=== PATIENT | male | born 1970 ===

== ENCOUNTER 2017-12-13 20:41 | Emergency (ER) | payer OTHER ==
[2017-12-13 21:01] VITALS: BP 144/75; PULSE 76; RESP 18; TEMP 98.3; O2SAT 99
[2017-12-13] MEDS ORDERED: Amoxicillin-Clav 875-125 mg Tab PO STA (21:37)
--- NOTE | 2017-12-13 21:44 | ED PDOC ---
HPI: General Adult Time Seen by Provider: 12/13/17 21:20 Chief Complaint (Nursing): Abnormal Skin Integrity Chief Complaint (Provider): abscess History Per: Patient Additional Complaint(s): 47-year-old male presents for evaluation of abscess to right leg for 2 days. Patient denies active drainage or fever. He has mild localized pain. Past Medical History Reviewed: Historical Data, Nursing Documentation, Vital Signs Vital Signs: Last Vital Signs Temp 98.3 F 12/13/17 20:59 Pulse 76 12/13/17 20:59 Resp 18 12/13/17 20:59 BP 144/75 12/13/17 20:59 Pulse Ox 99 12/13/17 20:59 - Medical History PMH: Diabetes - Surgical History Surgical History: Appendectomy - Family History Family History: States: No Known Family Hx - Living Arrangements Living Arrangements: With Family - Social History Current smoker - smoking cessation education provided: No Alcohol: None Drugs: Denies - Home Medications Home Medications: Ambulatory Orders Medication Instructions Recorded Amoxicillin/Clavulanate [Augmentin 1 tab PO BID #14 tab 12/13/17 875 MG-125 MG] Clindamycin [Cleocin] 300 mg PO QID #28 cap 12/13/17 Ibuprofen [Motrin] 600 mg PO Q6 PRN #15 tab 12/13/17 - Allergies Allergies/Adverse Reactions: Allergies Allergy/AdvReac Type Severity Reaction Status Date / Time No Known Allergies Allergy Verified 12/13/17 20:59 Review of Systems ROS Statement: Except As Marked, All Systems Reviewed And Found Negative Constitutional: Negative for: Fever Skin: Positive for: Other (abscess to right leg) Physical Exam - Reviewed Nursing Documentation Reviewed: Yes Vital Signs Reviewed: Yes - Physical Exam Appears: Positive for: Well, Non-toxic, No Acute Distress Skin: Positive for: Normal Color. Negative for: Rash Eye Exam: Positive for: Normal appearance Extremity: Positive for: Other (2 cm superficial abscess noted to right calf region, moderate induration with no fluctuance or active drainage, localized erythema with no erythematous streaking) Neurologic/Psych: Positive for: Alert, Oriented - ECG O2 Sat by Pulse Oximetry: 99 Pulse Ox Interpretation: Normal Medical Decision Making Medical Decision Makin47 y/o with right leg abscess Abscess is indurated with no fluctuance, no incision and drainage indicated at this time. Plan: Motrin 600 mg PO Augmentin 875 mg PO tab Clindamycin 300 mg PO Patient given prescriptions for Motrin, Augmentin and clindamycin. Advised warm compresses to affected area and PMD follow-up in 2-3 days. Disposition - Clinical Impression Clinical Impression: Abscess - Patient ED Disposition Is Patient to be Admitted: No Counseled Patient/Family Regarding: Diagnosis, Need For Followup, Rx Given - Disposition Referrals: [facility] [Outside] Disposition: Routine/Home Disposition Time: 21:39 Condition: STABLE Additional Instructions: Apply warm compresses with Epsom salts to affected area as often as possible. Take prescription meds as directed. Follow-up on Saturday with primary doctor. Prescriptions: Amoxicillin/Clavulanate [Augmentin 875 MG-125 MG] 1 tab PO BID #14 tab Clindamycin [Cleocin] 300 mg PO QID #28 cap Ibuprofen [Motrin] 600 mg PO Q6 PRN #15 tab PRN Reason: Pain, Moderate (4-7) Instructions: Skin Abscess
== END 2017-12-13 22:04 | disposition home or self-care (01) ==
LOC: H.ER 20:41
DX: L02.415 Cutaneous abscess of right lower limb (principal); E11.9 Type 2 diabetes mellitus without complications

== ENCOUNTER 2018-01-26 10:50 | Emergency (ER) | payer OTHER ==
[2018-01-26 11:02] VITALS: BP 123/78; PULSE 86; TEMP 97; O2SAT 97; BMI 28.9
--- NOTE | 2018-01-26 11:30 | ED PDOC ---
HPI: Skin/Bite Injury Time Seen by Provider: 01/26/18 11:18 Chief Complaint (Provider): Pain back History Per: Patient History/Exam Limitations: no limitations Onset/Duration Of Symptoms: Days (3 months) Additional Complaint(s): Pt. with pain and bump to the upper back left. Ongoing for 3 months. Seen by Emiliana and told to go to the surgeon. He did not follow up. Takes meds for arthritis pain and that helps his back pain. No numbness, tingles, weakness, headaches, abd pain. No injury. No rash. Past Medical History Reviewed: Nursing Documentation, Vital Signs Vital Signs: Last Vital Signs Temp 97 F L 01/26/18 11:01 Pulse 86 01/26/18 11:01 Resp BP 123/78 01/26/18 11:01 Pulse Ox 97 01/26/18 11:01 - Medical History PMH: Diabetes - Surgical History Surgical History: Appendectomy - Family History Family History: States: Unknown Family Hx - Living Arrangements Living Arrangements: With Family - Home Medications Home Medications: Ambulatory Orders Medication Instructions Recorded Amoxicillin/Clavulanate [Augmentin 1 tab PO BID #14 tab 12/13/17 875 MG-125 MG] Clindamycin [Cleocin] 300 mg PO QID #28 cap 12/13/17 Ibuprofen [Motrin] 600 mg PO Q6 PRN #15 tab 12/13/17 Ibuprofen [Motrin] 600 mg PO TID 7 Days tab 01/26/18 - Allergies Allergies/Adverse Reactions: Allergies Allergy/AdvReac Type Severity Reaction Status Date / Time No Known Allergies Allergy Verified 12/13/17 20:59 Review of Systems ROS Statement: Except As Marked, All Systems Reviewed And Found Negative Musculoskeletal: Positive for: Back Pain Physical Exam - Reviewed Nursing Documentation Reviewed: Yes - Physical Exam Appears: Positive for: Non-toxic, No Acute Distress Head Exam: Positive for: ATRAUMATIC, NORMAL INSPECTION, NORMOCEPHALIC Skin: Positive for: Normal Color, Warm Neck: Positive for: Normal, Painless ROM Cardiovascular/Chest: Positive for: Regular Rate, Rhythm Respiratory: Positive for: CNT, Normal Breath Sounds Gastrointestinal/Abdominal: Positive for: Normal Exam, Soft. Negative for: Tenderness Back: Positive for: Other (L upper back with 5cm diameter lipoma like structure. Mild tender, raised, no fluctuance, erythema, induration. ). Negative for: L CVA Tenderness, R CVA Tenderness Extremity: Positive for: Normal ROM Neurologic/Psych: Positive for: Alert, Oriented - ECG O2 Sat by Pulse Oximetry: 97 Pulse Ox Interpretation: Normal - Progress ED Course And Treament: 1131: Stable. AAOx3. Pain controlled. Has lipoma. Needs surgery fu. Disposition - Clinical Impression Clinical Impression: Lipoma - Patient ED Disposition Is Patient to be Admitted: No Counseled Patient/Family Regarding: Diagnosis, Need For Followup, Rx Given - Disposition Referrals: [facility] [Outside] Ridge Marie MD [Staff Provider] - 01/27/18 Disposition: Routine/Home Disposition Time: 11:32 Condition: STABLE Additional Instructions: Return if not better in 3 days. Prescriptions: Ibuprofen [Motrin] 600 mg PO TID 7 Days tab Instructions: Lipoma
== END 2018-01-26 11:42 | disposition home or self-care (01) ==
LOC: H.ER 10:50
DX: D17.9 Benign lipomatous neoplasm, unspecified (principal)